=== PATIENT | female | born 1950 | race African-American/Black ===

== ENCOUNTER → 2016-10-02 | Outpatient (CLI) | payer MEDICARE ==
[~2016-10-02] MED LIST: REGADENOSON 0.4 MG/5 ML DISP.SYRIN. IV ONE
--- NOTE | 2016-10-02 10:57 | CARD ---
APPROVED REPORT EXAM: Two-dimensional and M-mode echocardiogram with Doppler and color Doppler. Other Information Quality : Average Rhythm : NSR INDICATION Chest Pain 2D DIMENSIONS RVDd2.9 (2.9-3.5cm)Left Atrium(2D)2.7 (1.6-4.0cm) IVSd0.9 (0.7-1.1cm)Aortic Root(2D)2.7 (2.0-3.7cm) LVDd3.7 (3.9-5.9cm)LVOT Diameter1.9 (1.8-2.4cm) PWd0.8 (0.7-1.1cm)LVDs2.2 (2.5-4.0cm) FS (%) 40.3 %SV41.1 ml LVEF(%)61.8 (>50%) Aortic Valve AoV Peak Mk.138.7cm/sAoV VTI31.1cm AO Peak GR.7.7mmHgLVOT Peak Mk.122.8cm/s AO Mean GR.5mmHgAVA (VMAX)2.51cm2 TOÑO (VTI)2.50cm2 Mitral Valve MV E Frteyrfh38.0cm/sMV E Peak Gr.4mmHg MV DECEL [id number] A Nyalinip61.8cm/s MV E Mean Gr.2mmHgMV RNH15mi E/A Ratio0.8MV A Iniwplte627ef MVA (PHT)2.97cm2 Pulmonary Vein S1 Pzigsced66.9cm/sD2 Rryuffiq48.0cm/s PVa [id number] LEFT VENTRICLE The left ventricle is normal size. There is normal left ventricular wall thickness. Left ventricle sy stolic function is normal. The Ejection Fraction is 60-65%. There is normal LV segmental wall motion. Tissue Doppler imaging reveals mild left ventricular diastolic dysfunction. Transmitral Doppler flow pattern is Grade I-abnormal relaxation pattern. RIGHT VENTRICLE The right ventricle is normal size. The right ventricular systolic function is normal. ATRIA The left atrium size is normal. The right atrium size is normal. The interatrial septum is intact wit h no evidence for an atrial septal defect or patent foramen ovale as noted on 2-D or Doppler imaging. AORTIC VALVE The aortic valve is normal in structure and function. The aortic valve is trileaflet. Doppler and Col or Flow revealed no significant aortic regurgitation. There is no significant aortic valvular stenosi s. MITRAL VALVE The mitral valve leaflets are thickened. There is no mitral valve stenosis. Doppler and Color Flow re vealed trace mitral regurgitation. TRICUSPID VALVE The tricuspid valve is normal in structure and function. Doppler and Color Flow revealed no tricuspid valve regurgitation noted. Unable to estimate PA pressure. There is no tricuspid valve stenosis. PULMONIC VALVE The pulmonary valve is normal in structure and function. Doppler and Color Flow revealed trace pulmon ic valvular regurgitation. There is no pulmonic valvular stenosis. GREAT VESSELS The aortic root is normal in size. Normal pulmonary venous flow (Doppler). The IVC is normal in size and collapses >50% with inspiration. PERICARDIAL EFFUSION There is no evidence of significant pericardial effusion. Critical Notification Critical Value: No <Conclusion> Left ventricle systolic function is normal. The Ejection Fraction is 60-65%. There is normal LV segmental wall motion. Transmitral Doppler flow pattern is Grade I-abnormal relaxation pattern. Trace mitral regurgitation. There is no evidence of significant pericardial effusion.
--- NOTE | 2016-10-02 14:00 | RAD ---
APPROVED REPORT Test Type: Pharmacological Stress Nurse/Tech: Nuria Perera R.N. Test Indications: chest pain Cardiac History: htn,DM Medications: See Electronic Medical Record Medical History: See Electronic Medical Record Resting ECG: SR, T waves inverted in leads AVR,V1,V2 Resting Heart Rate: 78 bpm Resting Blood Pressure: 112/70mmHg Pretest Chest Pain: No chest pain Nurse/Tech Notes S1S2, lungs CTA Consent: The procedure was explained to the patient in lay terms. Informed consent was witnessed. Rl eout was entered into [employer]. History and Stress Test performed by MIL[facility] [employer]. Details Pharmacologic stress testing was performed using 0.4mg per 5ml of regadenoson given intravenously ove r 7-10 seconds. Stress Symptoms slight SOB, slight queasiness both of which resolved by the end of recovery period POST EXERCISE Reason for Termination: Infusion complete Max HR: 144 bpm Max Blood Pressure: 128/70mmHg Blood Pressure response to exercise: Normal blood pressure response during stress. Heart Rate response to exercise: wnl Chest Pain: No. Arrhythmia: No. ST Change: No. INTERPRETATION Stress EKG Conclusion: Negative Imaging Protocol IMAGE PROTOCOL: Rest Tc-99m/stress Tc-99m 1 day Rest: Stress: Viability: Radiopharm.Tc99m WswxzhsifVf73a Sestamibi Dose11.4mCi 37.8mCi Img Date 10/02/2016 10/02/2016 Inj-Img Uleo47kml. 60min. Rest Admin Site:IV - Left AntecubitalAdministrator:MILI Jean Stress Admin Site: IV - Left AntecubitalAdministrator: DEVIN Maria, ARRT (R)(N) STRESS DATA End Diast. Vol.49.0mlAv. Heart Rate88.0bpm End Syst. Vol.7.0mlCO Index BSA0.0L/min Myocardial Mass91.0gEject. Gmjatawa97.0% Stress Rates Pk. Fill Rate5.61EDV/secLVtime Pk. Fill 182.18msec Pk. Empty Rate5.65ESV/secLVtime Pk. Gtgng622.20msec 08/21 Pk. Fill1.33EDV/sec Stress Scores Regional WT1.00Summed WT4.00 Regional WM0.00Summed WM0.00 The rest and stress images show normal perfusion, normal contraction and thickening. LV Perf. Quant 17 Seg. SSS2.00 17 Seg. SRS5.00 17 Seg. SDS0.00 Stress Defect Extent (% LAD)3.80Rest Defect Extent (% LAD)12.50Rev. Defect Extent (% LAD)0.00 Stress Defect Extent (% LCX) 0.00Rest Defect Extent (% LCX)0.00Rev. Defect Extent (% LCX)0.00 Stress Defect Extent (% RCA)0.00Rest Defect Extent (% RCA)1.10Rev. Defect Extent (% RCA)0.00 Stress Defect Extent (% ISHAAN)2.20Rest Defect Extent (% ISHAAN)8.00Rev. Defect Extent (% ISHAAN)0.00 Other Information Quality:Good Risk Assessment: Low Risk Conclusion 1. No evidence of stress induced EKG changes. 2. Normal myocardial perfusion at stress/rest 3. Low risk study 4. Normal EF at > 65%
== END | disposition home or self-care (01) ==
LOC: NM 07:15
PROVIDERS: ATTEND Internal Medicine Cardiovascular Disease
DX: I34.0 Nonrheumatic mitral (valve) insufficiency (principal); I37.1 Nonrheumatic pulmonary valve insufficiency
CPT/HCPCS: 78452; 93017; 93306; 96374; 96375; 96376; A9500; J2785

== ENCOUNTER → 2016-11-14 | Outpatient (CLI) | payer MEDICARE ==
--- NOTE | 2016-11-14 11:29 | KCIC ---
Right hip two views Indication: Right hip pain for 3 weeks. Time of exam 11:17 a.m. Femoral acetabular alignment is normal. The femoral head and neck are intact. No fractures are seen. There is superior joint space narrowing compatible with mild degenerative change. The right-sided rami are intact. Impression: There are mild degenerative changes of the right hip. No acute bony abnormality is detected. Electronically signed by: Ric Wright MD (Nov 14, 2016 11:28:34)
== END | disposition home or self-care (01) ==
LOC: KCIC 10:58
PROVIDERS: ATTEND Family Medicine
DX: M25.551 Pain in right hip (principal)
CPT/HCPCS: 73502

== ENCOUNTER 2018-01-15 09:10 | Day surgery (SDC) | payer OTHER, MEDICARE ==
[~2018-01-15 09:10] MED LIST changes: +LIDOCAINE 1% PF 2 ML VIAL. ID; +MORPHINE SULFATE 4 MG/ML DISP.SYRIN. IV; +ONDANSETRON PF 4 MG/2 ML VIAL. IV; +PROCHLORPERAZINE 10 MG/2 ML VIAL. IV; -REGADENOSON 0.4 MG/5 ML DISP.SYRIN. IV ONE; +fentaNYL PF VIAL 100 MCG/2 ML VIAL IV
[2018-01-15] MEDS ORDERED: LIDOCAINE 2% PF Vial for OR 5 ML VIAL. (09:15)
[2018-01-15] MEDS ORDERED: DEXAMETHASONE SOD PHOS 20 MG/5 ML VIAL. (09:15)
[2018-01-15] MEDS ORDERED: PROPOFOL 20 ML IV (09:15)
[2018-01-15] MEDS ORDERED: ONDANSETRON PF 4 MG/2 ML VIAL. (09:15)
[2018-01-15] MEDS ORDERED: fentaNYL PF VIAL 100 MCG/2 ML VIAL (09:17)
[2018-01-15] MEDS: IV RINGERS,LACTATED 1000ML 1,000 ML IV (09:53)
[2018-01-15] MEDS: BUPIVACAINE MPF 0.5% 30 ML VIAL. (10:42)
[2018-01-15] MEDS: LIDOCAINE 1% PF 30 ML VIAL. (10:42)
[2018-01-15] MEDS: HYDROcodone/APAP 5/325MG 1 TAB TABLET PO (12:01)
== END 2018-01-15 12:39 | disposition home or self-care (01) ==
LOC: SURG 09:10
DX: M65.312 Trigger thumb, left thumb (principal); E78.00 Pure hypercholesterolemia, unspecified; J45.909 Unspecified asthma, uncomplicated; E11.9 Type 2 diabetes mellitus without complications; E03.9 Hypothyroidism, unspecified; K21.9 Gastro-esophageal reflux disease without esophagitis; Z90.710 Acquired absence of both cervix and uterus; Z87.39 Personal history of other diseases of the musculoskeletal system and connective tissue; Z98.42 Cataract extraction status, left eye; Z98.41 Cataract extraction status, right eye
CPT/HCPCS: 26055; A7015; J0690; J1100; J2405; J2704; J3010; J3490

== ENCOUNTER → 2019-02-24 | Outpatient (CLI) | payer OTHER ==
[2018-01-15 11:48] VITALS: BP 138/92
[~2019-02-24] MED LIST changes: +ASPI81TA50 PO; +ATOR40TA59 PO; +CALC1TAB PO; +CETI10TA16 PO; +CYCL10TA2 PO; +HYDR-2761 PO; +HYDR12.58 PO; +LEVO50TA5 PO; -LIDOCAINE 1% PF 2 ML VIAL. ID; +LISI10TA2 PO; +METF500T16 PO; -MORPHINE SULFATE 4 MG/ML DISP.SYRIN. IV; +MULT1TAB52 PO; -ONDANSETRON PF 4 MG/2 ML VIAL. IV; -PROCHLORPERAZINE 10 MG/2 ML VIAL. IV; +RANI300C PO; +VENTOLIN HFA18 GM INH; -fentaNYL PF VIAL 100 MCG/2 ML VIAL IV
--- NOTE | 2019-02-24 08:58 | KCIC ---
ABDOMEN COMPLETE: 02/24/2019 9:00 AM Indication: 68 years old Female. Bloating, diarrhea. Comparison: None. FINDINGS: Sonographic evaluation of the abdomen was performed utilizing grayscale and color Doppler. Liver: Homogenous normal echotexture. Right hepatic lobe measures 14.9 cm. Suspicious hepatic mass. There is hepatopedal flow within the portal venous system. Biliary system: CBD measures 3 mm. There is no intrahepatic or extrahepatic biliary dilatation. Gallbladder: Gallbladder is contracted limiting evaluation. No gallstones or pericholecystic fluid. Mild gallbladder wall thickening may be secondary to contracted gallbladder state Pancreas: More globular contour of the head of the pancreas is noted without definitive pancreatic mass. Spleen: 6.4 cm. Poorly visualized. Right kidney: 10.4 x 4.0 x 3.6 cm. No hydronephrosis. Normal echotexture without focal mass or renal calculus. Left kidney: 8.7 x 4.3 x 4.3 cm. Poorly visualized. No definite hydronephrosis. Abdominal aorta and IVC: Visualized portions unremarkable. Free fluid:None. IMPRESSION: 1. Globular contour of the pancreatic head is nonspecific. Correlate with any underlying pancreatitis. A definite pancreatic mass is not visualized although further evaluation with CT abdomen pancreatic protocol may be of benefit. 2. Contracted gallbladder state limits evaluation. No gallstones or pericholecystic fluid. Electronically signed by: Adeline Recio MD (02/24/2019 8:55 AM) [id number]
--- NOTE | 2019-02-24 08:59 | KCIC ---
PELVIS ULTRASOUND: 02/24/2019 8:00 AM INDICATION: 68 years old Female. Pelvic pressure with history of hysterectomy. COMPARISON: None. TECHNIQUE: Transabdominal imaging of the pelvis is performed utilizing grayscale and color Doppler. FINDINGS: UTERUS: Surgically absent. Vaginal cuff appears normal. OVARIES: Not visualized. No suspicious adnexal mass. FREE FLUID: None. URINARY BLADDER: Unremarkable. IMPRESSION: No suspicious abnormality status post hysterectomy. Electronically signed by: Adeline Recio MD (02/24/2019 8:57 AM) [id number]
== END | disposition home or self-care (01) ==
LOC: KCIC US 07:39
PROVIDERS: ATTEND Family Medicine
DX: K82.0 Obstruction of gallbladder (principal)
CPT/HCPCS: 76700; 76856

== ENCOUNTER → 2019-03-03 | Outpatient (CLI) | payer OTHER ==
[2018-01-15 11:48] VITALS: BP 138/92
[~2019-03-03] MED LIST changes: +IOHEXOL 240 MG/ML 50ML VIAL. PO ONE; +IOHEXOL 300 MG/ML 100ML VIAL. IV ONE
--- NOTE | 2019-03-03 13:24 | KCIC ---
PQRS Compliance statement: One or more of the following individualized dose reduction techniques were utilized for this examination: 1. Automated exposure control. 2. Adjustment of the mA and/or kV according to patient size. 3. Use of iterative reconstruction technique. Indication:Pancreatic mass. Abnormal ultrasound. TECHNIQUE: CT abdomen without and with IV contrast. COMPARISON: Ultrasound from 03/06/2019. FINDINGS: Heart is normal in size. No pericardial or pleural effusion. Clear lung bases. 1.5 x 1.0 cm subcapsular segment 6 low-attenuation lesion only seen on portal venous and delayed phase images. 3 mm low attenuating lesion in segment 6 most likely a simple cyst. Spleen, gallbladder, adrenals and kidneys are within normal limits. Main pancreatic duct is nondilated. No abnormal enhancing lesions seen in the pancreas. No peripancreatic inflammatory changes. No intra or extrahepatic biliary duct dilation. No enlarged retroperitoneal adenopathy. No bowel obstruction. Normal appendix. No suspicious bony lesion. IMPRESSION: No pancreatic mass seen. Indeterminate segment 6 subcapsular liver lesion likely small hemangioma or complicated hepatic cyst. For definite evaluation MRI of the abdomen with IV contrast is recommended. Alternatively short-term follow-up with CT abdomen with triple phase IV contrast in 3 months. Electronically signed by: Satish Finch DO (03/03/2019 1:21 PM) [facility]
== END | disposition home or self-care (01) ==
LOC: KCIC CT 09:21
PROVIDERS: ATTEND Family Medicine
DX: R93.89 Abnormal findings on diagnostic imaging of other specified body structures (principal); I10 Essential (primary) hypertension; E11.9 Type 2 diabetes mellitus without complications; J45.909 Unspecified asthma, uncomplicated
CPT/HCPCS: 74170; 82565; Q9966; Q9967

== ENCOUNTER → 2019-05-07 | Day surgery (SDC) | payer MEDICARE ==
[~2019-05-07] MED LIST changes: -IOHEXOL 240 MG/ML 50ML VIAL. PO ONE; -IOHEXOL 300 MG/ML 100ML VIAL. IV ONE; +IV RINGERS,LACTATED 1000ML 1,000 ML IV SCH; +LISI1TAB23 PO; +PROPOFOL 40 ML IV ONE
[2019-05-07 11:23] VITALS: BP 131/82
--- NOTE | 2019-05-07 12:44 | PREOP HP ---
DATE OF SERVICE: 05/07/2019 REQUESTING PHYSICIAN: Edelmira Lazo MD PRIMARY CARE PHYSICIAN: Edelmira Lazo MD REASON FOR PROCEDURE: Dysphagia, reflux and history of colon polyps. HISTORY OF PRESENT ILLNESS: This is a 68-year-old female who presents for dysphagia, reflux and history of colon polyps. ALLERGIES: CODEINE. PAST MEDICAL HISTORY: 1. Asthma. 2. Diabetes. 3. Hypertension. 4. Hypercholesterolemia. 5. Colon polyps. FAMILY MEDICAL HISTORY: Negative for colorectal cancer. REVIEW OF SYSTEMS: A 13-point review of systems was done and it is positive as per HPI and otherwise negative. MEDICATIONS: MAR reviewed. PHYSICAL EXAMINATION: VITAL SIGNS: She is afebrile and her vital signs are stable. GENERAL: She is a well-developed, well-nourished -Prydeinig female, in no apparent distress. HEENT: Oropharynx is clear. CARDIOVASCULAR: S1, S2. LUNGS: Clear. ABDOMEN: Normoactive bowel sounds, soft, nontender, nondistended. EXTREMITIES: No edema. NEUROLOGIC: Awake, alert and oriented x 3. ASSESSMENT AND PLAN: 1. Dysphagia. 2. Reflux. 3. History of colon polyps. The risks and benefits of the upper and lower endoscopy were explained and she has agreed to proceed. MARY ELLEN GALAVIZ MD DR: ZEUS/nts JOB#: [id number] / [id number]
--- NOTE | 2019-05-08 15:07 | PATHOLOGY ---
[facility] Accession Number: [id number] . 01 Material submitted: . PART A: small bowel - SMALL BOWEL BIOPSY PART B: stomach - GASTRIC ANTRUM BIOPSY PART C: esophagus - DISTAL ESOPHAGUS BIOPSY. Modifiers: distal PART D: esophagus - MID ESOPHAGUS BIOPSY. Modifiers: mid PART E: colon - SIGMOID COLON POLYP BIOPSY. Modifiers: sigmoid . 01 Clinical history: . Reflux, history of polyps . 02 Diagnosis: A. Small bowel, biopsy: - Mild chronic inflammation. - Normal villous architecture. . B. Stomach, antrum, biopsy: - Chronic superficial gastritis, moderate, with focal acute activity. - Microorganisms morphologically consistent with Helicobacter pylori present on immunoperoxidase stain. . C. Esophagus, distal, biopsy: - Hyperplastic squamous epithelium with increased intraepithelial eosinophils, findings consistent with reflux esophagitis. - Separate portion of columnar epithelium with moderate acute and chronic inflammation and no evidence of intestinal metaplasia. . D. Esophagus, mid, biopsy: - Superficial portion of unremarkable squamous epithelium. . E. Colon, sigmoid, biopsy: - Hyperplastic polyp. ([facility]; 05/08/2019) [facility] 05/08/2019 1101 Local . 02 Electronically signed: . Buck Meraz MD, Pathologist NPI- [id number] . 01 Gross description: . A. The specimen is received in formalin, labeled "Lucusnoel, Hanny, small bowel BX", are four irregular fragments of polo soft tissue measuring 0.7 x 0.4 x 0.166 cm in aggregate. Entirely submitted in A1. . B. The specimen is received in formalin, labeled "Lucusnoel, Hanny, gastric antrum BX", are two irregular fragments of polo soft tissue measuring 0.4 cm in greatest dimension each. Entirely submitted in B1. . C. The specimen is received in formalin, labeled "Lucusnoel, Hanny, distal esophagus BX", are three irregular fragments of polo soft tissue measuring 0.4 x 0.4 x 0.2 cm in aggregate. Entirely submitted in C1. . D. The specimen is received in formalin, labeled "Lucusnoel, Hanny, mid esophagus BX", is an irregular fragment of neal-polo soft tissue measuring 0.3 cm in greatest dimension. Entirely submitted in D1. . E. The specimen is received in formalin, labeled "Lucusnoel, Hanny, sigmoid colon polyp BX", is an of polo soft tissue measuring 0.3 cm in greatest dimension. Entirely submitted in E1. ([facility]; 05/07/2019) [facility] 05/07/2019 2101 Local . 02 Pathologist provided ICD-10: K52.9, K29.50, K21.0, K20.9, K63.5 . 02 CPT . 327733, [id number], [id number], [id number], [id number] Specimen Comment: A courtesy copy of this report has been sent to Specimen Comment: [phone], . Specimen Comment: Report sent to / DR WALLS Performed at: 01 [facility] [address], [place] [id number] MD Delvis Gonzalez MD Phone: [phone] Performed at: 02 [facility] [address] [place], [place] [id number] MD Nima May MD Phone: [phone]
== END ==
LOC: ENDOS 09:09
PROVIDERS: ATTEND Internal Medicine Gastroenterology
DX: Z09 Encounter for follow-up examination after completed treatment for conditions other than malignant neoplasm (principal); K21.0 Gastro-esophageal reflux disease with esophagitis; K29.50 Unspecified chronic gastritis without bleeding; K63.5 Polyp of colon; K22.2 Esophageal obstruction; K57.30 Diverticulosis of large intestine without perforation or abscess without bleeding; K64.0 First degree hemorrhoids; K51.90 Ulcerative colitis, unspecified, without complications; K44.9 Diaphragmatic hernia without obstruction or gangrene; J45.909 Unspecified asthma, uncomplicated; E11.9 Type 2 diabetes mellitus without complications; I10 Essential (primary) hypertension; E78.00 Pure hypercholesterolemia, unspecified; Z86.010 Personal history of colon polyps; Z79.84 Long term (current) use of oral hypoglycemic drugs
CPT/HCPCS: 43239; 43450; 45380; 88305; 88342; J2704; 45378

== ENCOUNTER → 2019-06-01 | Outpatient (CLI) | payer MEDICARE ==
[2019-05-07 11:23] VITALS: BP 131/82
[~2019-06-01] MED LIST changes: +GADOTERATE 7.5 MMOL/15ML VIAL. IVP ONE; -IV RINGERS,LACTATED 1000ML 1,000 ML IV SCH; -PROPOFOL 40 ML IV ONE
--- NOTE | 2019-06-02 08:51 | KCIC ---
Examination: ABDOMEN WO/W CONTRAST History: Liver lesions. Abnormal CT. Comparison/Correlation: 03/03/2019 CT abdomen and pelvis without and with contrast, 03/19/2017 CT abdomen and pelvis with contrast Findings: Multisequence axial and coronal images of the abdomen were obtained. Following IV gadolinium administration, delayed postcontrast imaging was performed. Within the subcapsular aspect of segment 6 of the liver, there is a high signal intensity lesion with measurement of 1.2 cm x 0.4 cm in the axial plane. No enhancement is identified involving this lesion. There is no significant change in the appearance of this lesion on the multiple postcontrast series obtained upon correlation with precontrast T1 fat saturation imaging. No additional lesions identified to have a similar appearance. There are very small lesions which appear to represent cysts or biliary hamartomas involving the liver including segment 6. Portal vein is unremarkable. Gallbladder is unremarkable. No biliary dilatation. Adrenal glands, pancreas and kidneys unremarkable. No upper abdominal ascites. Visualized marrow is unremarkable. Impression: Right hepatic lobe subcapsular lesion is stable compared to 03/03/2019 CT abdomen without and with contrast. It is slightly increased compared to 03/19/2007 CT exam but considering the long time interval, this is still compatible with a benign process such as a proteinaceous complex cyst. No suspicious findings. Electronically signed by: Frankie Patricio MD (06/02/2019 8:48 AM) [facility]
== END | disposition home or self-care (01) ==
LOC: KCIC MRI 10:57
PROVIDERS: ATTEND Physician Assistant
DX: K76.89 Other specified diseases of liver (principal); I10 Essential (primary) hypertension; E11.9 Type 2 diabetes mellitus without complications; J45.909 Unspecified asthma, uncomplicated; Z88.5 Allergy status to narcotic agent
CPT/HCPCS: 74183; 82565; A9575